=== PATIENT | male | born 1975 | race Hispanic/Latino ===

== ENCOUNTER 2022-03-26 01:08 | Inpatient (IN) | payer SELFPAY ==
[2022-03-26] MEDS ORDERED: SODIUM CHLORIDE 0.9% 1000 ML 1,000 ML IV ONE ×3 (01:45→04:33)
[2022-03-26] MEDS ORDERED: LORazepam 2 MG/ML VIAL IV ONE ×2 (01:49→03:01)
[2022-03-26 02:18] LABS: Hematocrit 53.8 % (35.5-45.6); Hemoglobin 17.3 gm/dl (11.8-15.2); Mean Corpuscular HGB Conc 32 % (32-34); Mean Corpuscular Volume 86 fl (84-94); Platelet Count 400 K/mm3 (140-440); Red Blood Count 6.29 M/mm3 (3.65-5.03)
[2022-03-26 02:38] LABS: Albumin 5.7 g/dL (3.9-5); Calcium 10.9 mg/dL (8.4-10.2)
--- NOTE | 2022-03-26 03:07 | Emergency Department Report ---
ED General Adult HPI - General Stated complaint: DRUGS USE Time Seen by Provider: 03/26/22 01:45 Source: patient, EMS Mode of arrival: Stretcher Limitations: No Limitations - History of Present Illness Initial comments: 46-year-old male presents to the hospital with possible drug ingestion. Patient apparently jumped on an ambulance while at a stoplight requesting transport to the hospital. Possible drug ingestion suspected. Patient does state that he did smoke something. Tachycardic, diaphoretic, with agitation and generalized muscle cramps. I was informed that patient's oral temperature was 98-99 - Related Data Home Medications Medication Instructions Recorded Confirmed Last Taken No Known Home Medications [No 08/17/15 08/17/15 Unknown Reported Home Medications] Allergies Allergy/AdvReac Type Severity Reaction Status Date / Time No Known Allergies Allergy Unverified 08/17/15 16:16 ED Review of Systems ROS: Stated complaint: DRUGS USE Other details as noted in HPI Comment: All other systems reviewed and negative ED Past Medical Hx - Past Medical History Additional medical history: kidney stone x 1 - Social History Smoking Status: Current Every Day Smoker Substance Use Type: Alcohol - Medications Home Medications: Home Medications Medication Instructions Recorded Confirmed Last Taken Type No Known Home Medications [No 08/17/15 08/17/15 Unknown History Reported Home Medications] ED Physical Exam - Other Other exam information: General: Agitated Head: Atraumatic Eyes: normal appearance ENT: Moist mucous membranes Neck: Normal appearance, no midline tenderness Chest: Clear to auscultation bilaterally CV: Tachycardic regular rhythm Abdomen: Soft, normal bowel sounds, nontender, nondistended, no rebound or guarding Back: Normal inspection Extremity: Normal inspection, full range of motion, generalized muscle cramp Neuro: Alert O x 3, no facial asymmetry, speech clear, no gross motor sensory deficit Psych: Agitated Skin: Diaphoretic ED Course Vital Signs 03/26/22 03/26/22 03/26/22 01:28 01:30 02:37 Temperature Pulse Rate 148 H 144 H Respiratory 22 22 Rate Blood Pressure Blood Pressure 144/90 129/75 [Left] O2 Sat by Pulse 95 100 100 Oximetry 03/26/22 03/26/22 03/26/22 04:58 10:04 10:09 Temperature 97.4 F L Pulse Rate 105 H 106 H Respiratory 18 18 Rate Blood Pressure 130/81 Blood Pressure 114/70 [Left] O2 Sat by Pulse 100 99 Oximetry 03/26/22 03/26/22 03/26/22 10:15 10:31 10:50 Temperature Pulse Rate Respiratory Rate Blood Pressure 130/81 130/81 130/81 Blood Pressure [Left] O2 Sat by Pulse 98 98 70 L Oximetry 03/26/22 03/26/22 03/26/22 11:00 11:15 11:32 Temperature Pulse Rate Respiratory Rate Blood Pressure 130/81 130/81 130/81 Blood Pressure [Left] O2 Sat by Pulse 92 93 Oximetry 03/26/22 03/26/22 03/26/22 11:45 12:02 12:15 Temperature Pulse Rate Respiratory Rate Blood Pressure 130/81 130/81 130/81 Blood Pressure [Left] O2 Sat by Pulse 94 79 L 100 Oximetry 03/26/22 03/26/22 03/26/22 12:33 12:47 13:11 Temperature Pulse Rate Respiratory Rate Blood Pressure 130/81 130/81 130/81 Blood Pressure [Left] O2 Sat by Pulse 100 83 L 84 Oximetry 03/26/22 03/26/22 03/26/22 13:17 13:18 13:30 Temperature Pulse Rate Respiratory 20 Rate Blood Pressure 130/81 130/81 Blood Pressure [Left] O2 Sat by Pulse 86 95 85 Oximetry 03/26/22 03/26/22 03/26/22 13:47 14:02 14:15 Temperature Pulse Rate Respiratory Rate Blood Pressure 130/81 130/81 130/81 Blood Pressure [Left] O2 Sat by Pulse 17 L 80 L Oximetry 03/26/22 03/26/22 03/26/22 14:31 14:45 15:00 Temperature Pulse Rate Respiratory Rate Blood Pressure 130/81 130/81 130/81 Blood Pressure [Left] O2 Sat by Pulse 86 85 71 L Oximetry 03/26/22 03/26/22 03/26/22 15:18 15:33 18:17 Temperature Pulse Rate 108 H Respiratory Rate Blood Pressure 130/81 Blood Pressure [Left] O2 Sat by Pulse 72 L 84 Oximetry 03/26/22 03/26/22 03/26/22 18:31 18:45 19:01 Temperature Pulse Rate Respiratory Rate Blood Pressure 132/90 132/90 132/90 Blood Pressure [Left] O2 Sat by Pulse 99 96 98 Oximetry 03/26/22 03/26/22 03/26/22 19:15 19:31 19:45 Temperature Pulse Rate Respiratory Rate Blood Pressure 132/90 122/85 122/85 Blood Pressure [Left] O2 Sat by Pulse 99 96 96 Oximetry 03/26/22 03/26/22 03/26/22 20:01 20:15 20:31 Temperature Pulse Rate Respiratory Rate Blood Pressure 132/90 132/90 132/90 Blood Pressure [Left] O2 Sat by Pulse 100 98 89 Oximetry 03/26/22 03/26/22 03/26/22 20:45 21:01 21:15 Temperature Pulse Rate Respiratory Rate Blood Pressure 132/90 127/80 127/80 Blood Pressure [Left] O2 Sat by Pulse 93 96 96 Oximetry 03/26/22 03/26/22 03/26/22 21:31 21:45 21:51 Temperature Pulse Rate Respiratory Rate Blood Pressure 127/80 127/80 127/80 Blood Pressure [Left] O2 Sat by Pulse 98 100 100 Oximetry 03/26/22 03/26/22 03/26/22 22:00 22:05 22:22 Temperature Pulse Rate Respiratory Rate Blood Pressure 127/80 127/80 127/80 Blood Pressure [Left] O2 Sat by Pulse 100 99 83 L Oximetry 03/26/22 03/26/22 03/26/22 22:51 23:05 23:16 Temperature Pulse Rate Respiratory Rate Blood Pressure 127/80 127/80 Blood Pressure [Left] O2 Sat by Pulse 95 74 L 80 L Oximetry 03/26/22 23:20 Temperature Pulse Rate Respiratory Rate Blood Pressure 127/80 Blood Pressure [Left] O2 Sat by Pulse 78 L Oximetry ED Medical Decision Making - Lab Data Result diagrams: 03/27/22 03:42 03/27/22 03:42 Lab Results 03/26/22 03/26/22 03/26/22 Range/Units 01:54 01:54 01:54 WBC 22.1 H (4.5-11.0) K/mm3 RBC 6.29 H (3.65-5.03) M/mm3 Hgb 17.3 H (11.8-15.2) gm/dl Hct 53.8 H (35.5-45.6) % MCV 86 (84-94) fl MCH 28 (28-32) pg MCHC 32 (32-34) % RDW 15.0 (13.2-15.2) % Plt Count 400 (140-440) K/mm3 Add Manual Diff Complete Total Counted 100 Seg Neuts % (Manual) 91.0 H (40.0-70.0) % Band Neutrophils % 3.0 % Lymphocytes % (Manual) 3.0 L (13.4-35.0) % Reactive Lymphs % (Man) 0 % Monocytes % (Manual) 3.0 (0.0-7.3) % Eosinophils % (Manual) 0 (0.0-4.3) % Basophils % (Manual) 0 (0.0-1.8) % Metamyelocytes % 0 % Myelocytes % 0 % Promyelocytes % 0 % Blast Cells % 0 % Nucleated RBC % Not Reportable Seg Neutrophils # Man 20.1 H (1.8-7.7) K/mm3 Band Neutrophils # 0.7 K/mm3 Lymphocytes # (Manual) 0.7 L (1.2-5.4) K/mm3 Abs React Lymphs (Man) 0.0 K/mm3 Monocytes # (Manual) 0.7 (0.0-0.8) K/mm3 Eosinophils # (Manual) 0.0 (0.0-0.4) K/mm3 Basophils # (Manual) 0.0 (0.0-0.1) K/mm3 Metamyelocytes # 0.0 K/mm3 Myelocytes # 0.0 K/mm3 Promyelocytes # 0.0 K/mm3 Blast Cells # 0.0 K/mm3 WBC Morphology Not Reportable Hypersegmented Neuts Not Reportable Hyposegmented Neuts Not Reportable Hypogranular Neuts Not Reportable Smudge Cells Not Reportable Toxic Granulation Not Reportable Toxic Vacuolation Not Reportable Dohle Bodies Not Reportable Pelger-Huet Anomaly Not Reportable Clara Rods Not Reportable Platelet Estimate Consistent w auto Clumped Platelets Not Reportable Plt Clumps, EDTA Not Reportable Large Platelets Not Reportable Giant Platelets Not Reportable Platelet Satelliting Not Reportable Plt Morphology Comment Not Reportable RBC Morphology Normal Dimorphic RBCs Not Reportable Polychromasia Not Reportable Hypochromasia Not Reportable Poikilocytosis Not Reportable Anisocytosis Not Reportable Microcytosis Not Reportable Macrocytosis Not Reportable Spherocytes Not Reportable Pappenheimer Bodies Not Reportable Sickle Cells Not Reportable Target Cells Not Reportable Tear Drop Cells Not Reportable Ovalocytes Not Reportable Helmet Cells Not Reportable Gilmore-Nageezi Bodies Not Reportable Clare Rings Not Reportable Stephan Cells Not Reportable Bite Cells Not Reportable Crenated Cell Not Reportable Elliptocytes Not Reportable Acanthocytes (Spur) Not Reportable Rouleaux Not Reportable Hemoglobin C Crystals Not Reportable Schistocytes Not Reportable Malaria parasites Not Reportable Chacorta Bodies Not Reportable Hem Pathologist Commnt No Sodium (137-145) mmol/L Potassium (3.6-5.0) mmol/L Chloride (98-107) mmol/L Carbon Dioxide (22-30) mmol/L Anion Gap mmol/L BUN (9-20) mg/dL Creatinine (0.8-1.3) mg/dL Estimated GFR ml/min BUN/Creatinine Ratio % Glucose (75-100) mg/dL Lactic Acid (0.7-2.0) mmol/L Calcium (8.4-10.2) mg/dL Magnesium (1.7-2.3) mg/dL Total Bilirubin (0.1-1.2) mg/dL AST (5-40) units/L ALT (7-56) units/L Alkaline Phosphatase (35-129) units/L Total Creatine Kinase (55-170) units/L Total Protein (6.3-8.2) g/dL Albumin (3.9-5) g/dL Albumin/Globulin Ratio % Salicylates < 0.3 L (2.8-20.0) mg/dL Acetaminophen 5.0 L (10.0-30.0) ug/mL Plasma/Serum Alcohol (0-0.07) % 03/26/22 03/26/22 03/26/22 Range/Units 01:54 01:54 01:58 WBC (4.5-11.0) K/mm3 RBC (3.65-5.03) M/mm3 Hgb (11.8-15.2) gm/dl Hct (35.5-45.6) % MCV (84-94) fl MCH (28-32) pg MCHC (32-34) % RDW (13.2-15.2) % Plt Count (140-440) K/mm3 Add Manual Diff Total Counted Seg Neuts % (Manual) (40.0-70.0) % Band Neutrophils % % Lymphocytes % (Manual) (13.4-35.0) % Reactive Lymphs % (Man) % Monocytes % (Manual) (0.0-7.3) % Eosinophils % (Manual) (0.0-4.3) % Basophils % (Manual) (0.0-1.8) % Metamyelocytes % % Myelocytes % % Promyelocytes % % Blast Cells % % Nucleated RBC % Seg Neutrophils # Man (1.8-7.7) K/mm3 Band Neutrophils # K/mm3 Lymphocytes # (Manual) (1.2-5.4) K/mm3 Abs React Lymphs (Man) K/mm3 Monocytes # (Manual) (0.0-0.8) K/mm3 Eosinophils # (Manual) (0.0-0.4) K/mm3 Basophils # (Manual) (0.0-0.1) K/mm3 Metamyelocytes # K/mm3 Myelocytes # K/mm3 Promyelocytes # K/mm3 Blast Cells # K/mm3 WBC Morphology Hypersegmented Neuts Hyposegmented Neuts Hypogranular Neuts Smudge Cells Toxic Granulation Toxic Vacuolation Dohle Bodies Pelger-Huet Anomaly Clara Rods Platelet Estimate Clumped Platelets Plt Clumps, EDTA Large Platelets Giant Platelets Platelet Satelliting Plt Morphology Comment RBC Morphology Dimorphic RBCs Polychromasia Hypochromasia Poikilocytosis Anisocytosis Microcytosis Macrocytosis Spherocytes Pappenheimer Bodies Sickle Cells Target Cells Tear Drop Cells Ovalocytes Helmet Cells Gilmore-Nageezi Bodies Clare Rings Stephan Cells Bite Cells Crenated Cell Elliptocytes Acanthocytes (Spur) Rouleaux Hemoglobin C Crystals Schistocytes Malaria parasites Chacorta Bodies Hem Pathologist Commnt Sodium 146 H (137-145) mmol/L Potassium 4.2 (3.6-5.0) mmol/L Chloride 100.1 (98-107) mmol/L Carbon Dioxide 24 (22-30) mmol/L Anion Gap 26 mmol/L BUN 29 H (9-20) mg/dL Creatinine 2.2 H (0.8-1.3) mg/dL Estimated GFR 32 ml/min BUN/Creatinine Ratio 13 % Glucose 111 H (75-100) mg/dL Lactic Acid (0.7-2.0) mmol/L Calcium 10.9 H (8.4-10.2) mg/dL Magnesium (1.7-2.3) mg/dL Total Bilirubin 1.80 H (0.1-1.2) mg/dL AST 43 H (5-40) units/L ALT 41 (7-56) units/L Alkaline Phosphatase 94 (35-129) units/L Total Creatine Kinase 737 H (55-170) units/L Total Protein 8.9 H (6.3-8.2) g/dL Albumin 5.7 H (3.9-5) g/dL Albumin/Globulin Ratio 1.8 % Salicylates (2.8-20.0) mg/dL Acetaminophen (10.0-30.0) ug/mL Plasma/Serum Alcohol < 0.01 (0-0.07) % 03/26/22 03/26/22 Range/Units 01:58 03:23 WBC (4.5-11.0) K/mm3 RBC (3.65-5.03) M/mm3 Hgb (11.8-15.2) gm/dl Hct (35.5-45.6) % MCV (84-94) fl MCH (28-32) pg MCHC (32-34) % RDW (13.2-15.2) % Plt Count (140-440) K/mm3 Add Manual Diff Total Counted Seg Neuts % (Manual) (40.0-70.0) % Band Neutrophils % % Lymphocytes % (Manual) (13.4-35.0) % Reactive Lymphs % (Man) % Monocytes % (Manual) (0.0-7.3) % Eosinophils % (Manual) (0.0-4.3) % Basophils % (Manual) (0.0-1.8) % Metamyelocytes % % Myelocytes % % Promyelocytes % % Blast Cells % % Nucleated RBC % Seg Neutrophils # Man (1.8-7.7) K/mm3 Band Neutrophils # K/mm3 Lymphocytes # (Manual) (1.2-5.4) K/mm3 Abs React Lymphs (Man) K/mm3 Monocytes # (Manual) (0.0-0.8) K/mm3 Eosinophils # (Manual) (0.0-0.4) K/mm3 Basophils # (Manual) (0.0-0.1) K/mm3 Metamyelocytes # K/mm3 Myelocytes # K/mm3 Promyelocytes # K/mm3 Blast Cells # K/mm3 WBC Morphology Hypersegmented Neuts Hyposegmented Neuts Hypogranular Neuts Smudge Cells Toxic Granulation Toxic Vacuolation Dohle Bodies Pelger-Huet Anomaly Clara Rods Platelet Estimate Clumped Platelets Plt Clumps, EDTA Large Platelets Giant Platelets Platelet Satelliting Plt Morphology Comment RBC Morphology Dimorphic RBCs Polychromasia Hypochromasia Poikilocytosis Anisocytosis Microcytosis Macrocytosis Spherocytes Pappenheimer Bodies Sickle Cells Target Cells Tear Drop Cells Ovalocytes Helmet Cells Gilmore-Nageezi Bodies Clare Rings Letha Cells Bite Cells Crenated Cell Elliptocytes Acanthocytes (Spur) Rouleaux Hemoglobin C Crystals Schistocytes Malaria parasites Chacorta Bodies Hem Pathologist Commnt Sodium (137-145) mmol/L Potassium (3.6-5.0) mmol/L Chloride (98-107) mmol/L Carbon Dioxide (22-30) mmol/L Anion Gap mmol/L BUN (9-20) mg/dL Creatinine (0.8-1.3) mg/dL Estimated GFR ml/min BUN/Creatinine Ratio % Glucose (75-100) mg/dL Lactic Acid 1.60 (0.7-2.0) mmol/L Calcium (8.4-10.2) mg/dL Magnesium 2.60 H (1.7-2.3) mg/dL Total Bilirubin (0.1-1.2) mg/dL AST (5-40) units/L ALT (7-56) units/L Alkaline Phosphatase (35-129) units/L Total Creatine Kinase (55-170) units/L Total Protein (6.3-8.2) g/dL Albumin (3.9-5) g/dL Albumin/Globulin Ratio % Salicylates (2.8-20.0) mg/dL Acetaminophen (10.0-30.0) ug/mL Plasma/Serum Alcohol (0-0.07) % - EKG Data -: EKG Interpreted by [facility] EKG shows normal: sinus rhythm, ST-T waves (no stemi) Rate: normal (109) - Radiology Data Radiology results: report reviewed CHEST 1 VIEW INDICATION / CLINICAL INFORMATION: excited delerium, possible drug ingestion. COMPARISON: None available. FINDINGS: SUPPORT DEVICES: None. HEART / MEDIASTINUM: No significant abnormality. LUNGS / PLEURA: No significant pulmonary abnormality. BONES: No significant osseous abnormality. ADDITIONAL FINDINGS: No significant additional findings. IMPRESSION: 1. No active cardiopulmonary disease. - Medical Decision Making 46-year-old male presents to the hospital with acute agitation, diaphoresis, tachycardia. Patient does admit to unknown drug use prior to arrival. Symptoms improving with IV fluids and Ativan. Labs reveal elevated WBC count and renal insufficiency. Patient meets criteria for SIRS. No source of infection identified at this time. Lactic acid normal. Patient will be admitted to the hospital service for further treatment and monitoring. - Differential Diagnosis Excited delirium, drug ingestion, sepsis, arrhythmia Critical Care Time: No Critical care attestation.: If time is entered above; I have spent that time in minutes in the direct care of this critically ill patient, excluding procedure time. ED Disposition Clinical Impression: Acute drug intoxication, Agitation, SIRS (systemic inflammatory response syndrome), Renal insufficiency Disposition: ADMITTED INPATIENT Is pt being admited?: Yes Condition: Stable Time of Disposition: 04:50 (DR Hill)
[2022-03-26 03:14] LABS: Band Neutrophils # (Manual) 0.7 K/mm3; Basophils % (Manual) 0 % (0.0-1.8); Eosinophils % (Manual) 0 % (0.0-4.3); Platelet Estimate Consistent w Auto; RBC Morphology Normal; Total Cells Counted 100
[2022-03-26] MEDS ORDERED: ALBUTEROL 2.5 MG/3 ML NEBU IH PRN (05:00)
[2022-03-26] MEDS ORDERED: ONDANSETRON 4 MG/2 ML INJ IV PRN (05:00)
[2022-03-26] MEDS ORDERED: MORPHINE 4 MG/1 ML INJ IV PRN (05:00)
[2022-03-26] MEDS ORDERED: D5W/0.45% NACL 1,000 ML IV SCH (05:00)
[2022-03-26] MEDS ORDERED: MORPHINE 2 MG/1 ML INJ IV PRN (05:00)
[2022-03-26] MEDS ORDERED: ACETAMINOPHEN 325 MG TAB PO PRN (05:00)
--- NOTE | 2022-03-26 05:07 | History and Physical Report ---
History of Present Illness Date of examination: 03/26/22 Date of admission: 03/26/22 Chief complaint: Drug intoxication History of present illness: 46-year-old male with history of drug abuse and kidney stone was brought to the emergency room because of drug intoxication. Patient apparently jumped on an ambulance while at a stoplight requesting transport to the hospital. Possible drug ingestion suspected. Patient does state that he did smoke something. Tachycardic, diaphoretic, with agitation and generalized muscle cramps. patient's oral temperature was 98-99 In the emergency room patient is found to have acute drug intoxication. Patient WBC is 22.1, BUN 29 and creatinine 2.2, sodium 146, lactic acid 1.60, alcohol level 0.01 Past History Past Medical History: other (Drug abuse, kidney stone) Past Surgical History: No surgical history Social history: smoking, alcohol abuse Family history: no significant family history Medications and Allergies Allergies Allergy/AdvReac Type Severity Reaction Status Date / Time No Known Allergies Allergy Unverified 08/17/15 16:16 Home Medications Medication Instructions Recorded Confirmed Last Taken Type No Known Home Medications [No 08/17/15 08/17/15 Unknown History Reported Home Medications] Active Meds: Active Medications Acetaminophen (Acetaminophen 325 Mg Tab) 650 mg PO Q4H PRN PRN Reason: Pain MILD(1-3)/Fever >100.5/CASTANO Albuterol (Albuterol 2.5 Mg/3 Ml Nebu) 2.5 mg IH Q3HRT PRN PRN Reason: Shortness Of Breath Albuterol/Ipratropium (Ipratropium/Albuterol Sulfate 3 Ml Ampul.Neb) 1 ampul IH Q6HRT ELIZA Famotidine (Famotidine 20 Mg/2 Ml Inj) 20 mg IV BID ELIZA Heparin Sodium (Porcine) (Heparin 5,000 Unit/1 Ml Vial) 5,000 unit SUB-Q Q12HR ELIZA Sodium Chloride (Nacl 0.9% 1000 Ml) 1,000 mls @ 999 mls/hr IV BOLUS ONE Stop: 03/26/22 05:33 Dextrose/Sodium Chloride (D5/0.45ns) 1,000 mls @ 125 mls/hr IV DIRECT ELIZA Morphine Sulfate (Morphine 2 Mg/1 Ml Inj) 2 mg IV Q4H PRN PRN Reason: Pain, Moderate (4-6) Morphine Sulfate (Morphine 4 Mg/1 Ml Inj) 4 mg IV Q4H PRN PRN Reason: Pain , Severe (7-10) Ondansetron HCl (Ondansetron 4 Mg/2 Ml Inj) 4 mg IV Q8H PRN PRN Reason: Nausea And Vomiting Sodium Chloride (Sodium Chloride 0.9% 10 Ml Flush Syringe) 10 ml IV BID ELIZA Sodium Chloride (Sodium Chloride 0.9% 10 Ml Flush Syringe) 10 ml IV PRN PRN PRN Reason: LINE FLUSH Review of Systems All systems: negative Constitutional: fatigue, malaise, lethargy, other (Altered mental status) Exam - Constitutional Vitals: Temp Pulse Resp BP Pulse Ox 97.4 F L 105 H 18 114/70 100 03/26/22 04:58 03/26/22 04:58 03/26/22 04:58 03/26/22 04:58 03/26/22 04:58 General appearance: Present: no acute distress, well-nourished - EENT Eyes: Present: PERRL ENT: hearing intact, clear oral mucosa - Neck Neck: Present: supple, normal ROM - Respiratory Respiratory effort: normal Respiratory: bilateral: CTA - Cardiovascular Heart Sounds: Present: S1 & S2. Absent: rub, click - Extremities Extremities: pulses symmetrical, No edema Peripheral Pulses: within normal limits - Abdominal General gastrointestinal: Present: soft, non-tender, non-distended, normal bowel sounds Male genitourinary: Present: normal - Integumentary Integumentary: Present: clear, warm, dry - Musculoskeletal Musculoskeletal: gait normal, strength equal bilaterally - Neurologic Neurologic: CNII-XII intact, moves all extremities Results - Labs CBC & Chem 7: 03/26/22 01:54 03/26/22 01:58 Labs: Laboratory Last Values WBC 22.1 K/mm3 (4.5-11.0) H 03/26/22 01:54 RBC 6.29 M/mm3 (3.65-5.03) H 03/26/22 01:54 Hgb 17.3 gm/dl (11.8-15.2) H 03/26/22 01:54 Hct 53.8 % (35.5-45.6) H 03/26/22 01:54 MCV 86 fl (84-94) 03/26/22 01:54 MCH 28 pg (28-32) 03/26/22 01:54 MCHC 32 % (32-34) 03/26/22 01:54 RDW 15.0 % (13.2-15.2) 03/26/22 01:54 Plt Count 400 K/mm3 (140-440) 03/26/22 01:54 Add Manual Diff Complete 03/26/22 01:54 Total Counted 100 03/26/22 01:54 Seg Neuts % (Manual) 91.0 % (40.0-70.0) H 03/26/22 01:54 Band Neutrophils % 3.0 % 03/26/22 01:54 Lymphocytes % (Manual) 3.0 % (13.4-35.0) L 03/26/22 01:54 Reactive Lymphs % (Man) 0 % 03/26/22 01:54 Monocytes % (Manual) 3.0 % (0.0-7.3) 03/26/22 01:54 Eosinophils % (Manual) 0 % (0.0-4.3) 03/26/22 01:54 Basophils % (Manual) 0 % (0.0-1.8) 03/26/22 01:54 Metamyelocytes % 0 % 03/26/22 01:54 Myelocytes % 0 % 03/26/22 01:54 Promyelocytes % 0 % 03/26/22 01:54 Blast Cells % 0 % 03/26/22 01:54 Nucleated RBC % Not Reportable 03/26/22 01:54 Seg Neutrophils # Man 20.1 K/mm3 (1.8-7.7) H 03/26/22 01:54 Band Neutrophils # 0.7 K/mm3 03/26/22 01:54 Lymphocytes # (Manual) 0.7 K/mm3 (1.2-5.4) L 03/26/22 01:54 Abs React Lymphs (Man) 0.0 K/mm3 03/26/22 01:54 Monocytes # (Manual) 0.7 K/mm3 (0.0-0.8) 03/26/22 01:54 Eosinophils # (Manual) 0.0 K/mm3 (0.0-0.4) 03/26/22 01:54 Basophils # (Manual) 0.0 K/mm3 (0.0-0.1) 03/26/22 01:54 Metamyelocytes # 0.0 K/mm3 03/26/22 01:54 Myelocytes # 0.0 K/mm3 03/26/22 01:54 Promyelocytes # 0.0 K/mm3 03/26/22 01:54 Blast Cells # 0.0 K/mm3 03/26/22 01:54 WBC Morphology Not Reportable 03/26/22 01:54 Hypersegmented Neuts Not Reportable 03/26/22 01:54 Hyposegmented Neuts Not Reportable 03/26/22 01:54 Hypogranular Neuts Not Reportable 03/26/22 01:54 Smudge Cells Not Reportable 03/26/22 01:54 Toxic Granulation Not Reportable 03/26/22 01:54 Toxic Vacuolation Not Reportable 03/26/22 01:54 Dohle Bodies Not Reportable 03/26/22 01:54 Pelger-Huet Anomaly Not Reportable 03/26/22 01:54 Clara Rods Not Reportable 03/26/22 01:54 Platelet Estimate Consistent w auto 03/26/22 01:54 Clumped Platelets Not Reportable 03/26/22 01:54 Plt Clumps, EDTA Not Reportable 03/26/22 01:54 Large Platelets Not Reportable 03/26/22 01:54 Giant Platelets Not Reportable 03/26/22 01:54 Platelet Satelliting Not Reportable 03/26/22 01:54 Plt Morphology Comment Not Reportable 03/26/22 01:54 RBC Morphology Normal 03/26/22 01:54 Dimorphic RBCs Not Reportable 03/26/22 01:54 Polychromasia Not Reportable 03/26/22 01:54 Hypochromasia Not Reportable 03/26/22 01:54 Poikilocytosis Not Reportable 03/26/22 01:54 Anisocytosis Not Reportable 03/26/22 01:54 Microcytosis Not Reportable 03/26/22 01:54 Macrocytosis Not Reportable 03/26/22 01:54 Spherocytes Not Reportable 03/26/22 01:54 Pappenheimer Bodies Not Reportable 03/26/22 01:54 Sickle Cells Not Reportable 03/26/22 01:54 Target Cells Not Reportable 03/26/22 01:54 Tear Drop Cells Not Reportable 03/26/22 01:54 Ovalocytes Not Reportable 03/26/22 01:54 Helmet Cells Not Reportable 03/26/22 01:54 Gil[place]-Harrell Bodies Not Reportable 03/26/22 01:54 [place] Rings Not Reportable 03/26/22 01:54 [place] Cells Not Reportable 03/26/22 01:54 Bite Cells Not Reportable 03/26/22 01:54 Crenated Cell Not Reportable 03/26/22 01:54 Elliptocytes Not Reportable 03/26/22 01:54 Acanthocytes (Spur) Not Reportable 03/26/22 01:54 Rouleaux Not Reportable 03/26/22 01:54 Hemoglobin C Crystals Not Reportable 03/26/22 01:54 Schistocytes Not Reportable 03/26/22 01:54 Malaria parasites Not Reportable 03/26/22 01:54 Chacorta Bodies Not Reportable 03/26/22 01:54 Hem Pathologist Commnt No 03/26/22 01:54 Sodium 146 mmol/L (137-145) H 03/26/22 01:58 Potassium 4.2 mmol/L (3.6-5.0) 03/26/22 01:58 Chloride 100.1 mmol/L (98-107) 03/26/22 01:58 Carbon Dioxide 24 mmol/L (22-30) 03/26/22 01:58 Anion Gap 26 mmol/L 03/26/22 01:58 BUN 29 mg/dL (9-20) H 03/26/22 01:58 Creatinine 2.2 mg/dL (0.8-1.3) H 03/26/22 01:58 Estimated GFR 32 ml/min 03/26/22 01:58 BUN/Creatinine Ratio 13 % 03/26/22 01:58 Glucose 111 mg/dL (75-100) H 03/26/22 01:58 Lactic Acid 1.60 mmol/L (0.7-2.0) 03/26/22 03:23 Calcium 10.9 mg/dL (8.4-10.2) H 03/26/22 01:58 Magnesium 2.60 mg/dL (1.7-2.3) H 03/26/22 01:58 Total Bilirubin 1.80 mg/dL (0.1-1.2) H 03/26/22 01:58 AST 43 units/L (5-40) H 03/26/22 01:58 ALT 41 units/L (7-56) 03/26/22 01:58 Alkaline Phosphatase 94 units/L (35-129) 03/26/22 01:58 Total Creatine Kinase 737 units/L (55-170) H 03/26/22 01:54 Total Protein 8.9 g/dL (6.3-8.2) H 03/26/22 01:58 Albumin 5.7 g/dL (3.9-5) H 03/26/22 01:58 Albumin/Globulin Ratio 1.8 % 03/26/22 01:58 Salicylates < 0.3 mg/dL (2.8-20.0) L 03/26/22 01:54 Acetaminophen 5.0 ug/mL (10.0-30.0) L 03/26/22 01:54 Plasma/Serum Alcohol < 0.01 % (0-0.07) 03/26/22 01:54 - Imaging and Cardiology Chest x-ray: report reviewed Assessment and Plan VTE prophylaxis?: Chemical Plan of care discussed with patient/family: Yes - Patient Problems (1) Acute drug intoxication Current Visit: Yes Status: Acute Plan to address problem: Admit the patient to the medical telemetry. NPO. D5 half-normal saline at the rate of 125 cc/h. Oxygen per nasal cannula 3 L/min DuoNeb and nebulizer every 4 hours. We will consult psych for evaluation. Recheck CBC BMP in the morning (2) MALU (acute kidney injury) Current Visit: Yes Status: Acute Plan to address problem: Avoid nephrotoxic drug. Renally dose medication. D5 half-normal saline at the rate of 125 cc/h. Recheck BMP in the morning (3) SIRS (systemic inflammatory response syndrome) Current Visit: Yes Status: Acute Plan to address problem: Rocephin 2 g IV daily. We will do the blood culture urine culture. Recheck CBC in the morning (4) Hypernatremia Current Visit: Yes Status: Acute Plan to address problem: D5 half-normal saline at the rate of 125 cc/h. We will recheck the BMP in the morning (5) Agitation Current Visit: Yes Status: Acute Plan to address problem: Patient got Ativan as needed. We will monitor the patient closely (6) Tobacco abuse Current Visit: Yes Status: Acute Plan to address problem: We counseled regarding quitting smoking. We will put the patient on nicotine patch 21 mg to the skin daily (7) DVT prophylaxis Current Visit: Yes Status: Acute Plan to address problem: Heparin 5000 units subcu every 12 hours for DVT prophylaxis. Pepcid 20 mg IV every 12 hours for GI prophylaxis. Patient is a full code
--- NOTE | 2022-03-26 05:17 | XRay Report ---
CHEST 1 VIEW INDICATION / CLINICAL INFORMATION: excited delerium, possible drug ingestion. COMPARISON: None available. FINDINGS: SUPPORT DEVICES: None. HEART / MEDIASTINUM: No significant abnormality. LUNGS / PLEURA: No significant pulmonary abnormality. BONES: No significant osseous abnormality. ADDITIONAL FINDINGS: No significant additional findings. IMPRESSION: 1. No active cardiopulmonary disease. Signer Name: Tone Elias II, MD Signed: 03/26/2022 5:12 AM Workstation Name: [id number]
[2022-03-26] MEDS ORDERED: NICOTINE 21 MG/24 HR PATCH TD ONE ×2 (05:41→11:00)
[2022-03-26] MEDS: cefTRIAXone/NS 2 GM/100 ML 2 GM/100 ML BAG IV SCH (06:45)
--- NOTE | 2022-03-26 09:07 | Electrocardiograph Report ---
[facility] Test Date: 2022-03-26 Test Time: 04:16:08 Pat Name: COLETTE GREWAL Department: Room: [facility] Gender: M Slide Developer: FELICITAS : 1975 Requested By: LIZZY SANTIAGO Order Number: [id number] Reading MD: Vitaliy Matamoros Measurements Intervals [place] Rate: 109 P: 38 NH: 148 QRS: 31 QRSD: 88 T: 48 QT: 371 QTc: 499 Interpretive Statements Sinus tachycardia No previous ECG available for comparison Electronically Signed On 03-26-2022 9:07:22 EDT by Vitaliy Matamoros
[2022-03-26] MEDS: HEPARIN 5,000 UNIT/1 ML VIAL SUB-Q SCH ×2 (10:55→22:10)
--- NOTE | 2022-03-26 12:58 | Consultation ---
History of Present Illness - Reason for Consult Consult date: 03/26/22 Reason for consult: Mental health evaluation - Chief Complaint Chief complaint: Drug intoxication - History of Present Psychiatric Illness HPI: 46-year-old male presents to the hospital with possible drug ingestion. Patient apparently jumped on an ambulance while at a stoplight requesting transport to the hospital. Possible drug ingestion suspected. Patient does state that he did smoke something. Tachycardic, diaphoretic, with agitation and generalized muscle cramps. I was informed that patient's oral temperature was 98-99. The patient is a 46 year old male with history of substance abuse. The patient was seen today. The patient is anxious , alert and oriented x2. The states " I had to get away, too much pressure in my house." The patient reports ingesting ICE and alcohol " big bottle of Smirnoff" yesterday. When asked why he uses drugs, he states " my job, everybody use drugs, that how I started." He reports previous psychiatric inpatient admission for detoxification and has also been to a Rehab. The patient denies any current suicidal homicidal ideation and denies hallucinations. PAST PSYCHIATRIC HISTORY: Diagnoses: ADHD, Substance use disorder Suicide attempts or Self-harm behavior: Denies Prior psychiatric hospitalizations: Yes Substance Abuse history: Alcohol and ICE Previous psychiatric medications tried: Unable to recall Outpatient treatment: None report PAST MEDICAL HISTORY: Family Psychiatric History: None reported or documented SOCIAL HISTORY Marital Status: single Living Arrangements: with girl friend Employment Status:employed Access to guns/weapons: Denies Education: 9th grade History of Abuse: None reported Legal History: None reported REVIEW OF SYSTEMS Constitutional: Negative for weight loss ENT: Negative for stridor Respiratory: Negative for cough or hemoptysis All other systems reviewed and are negative MENTAL STATUS EXAMINATION General Appearance and Behavior: Age appropriate, good hygiene, wearing appropriate clothes, good eye contact, cooperative Cooperation: Participating/engaged Psychomotor Behavior: unremarkable and within normal limits Mood: anxious Affect and affective range: congruent with mood Thought Process: circumstantial Thought Content: Reality oriented Speech: Normal volume, Regular rate and rhythm Suicidal Ideation: Denies Homicidal Ideation: Denies Hallucinations: Denies Impulse Control: Unimpaired Insight and Judgment: Limited insight and judgment Memory: Normal Attention: Normal Orientation: Alert, oriented Assessment Substance use disorder Treatment Plan Sitter: Defer to primary Medical: Per primary Disposition:Do not Recommend acute inpatient treatment. Cafeteria Team Leader will provide with psychiatric outpatient resources. Will follow Case discussed with Dr. Raymond Medications and Allergies Allergies Allergy/AdvReac Type Severity Reaction Status Date / Time No Known Allergies Allergy Unverified 08/17/15 16:16 Home Medications Medication Instructions Recorded Confirmed Last Taken Type No Known Home Medications [No 08/17/15 08/17/15 Unknown History Reported Home Medications] Active Meds: Active Medications Acetaminophen (Acetaminophen 325 Mg Tab) 650 mg PO Q4H PRN PRN Reason: Pain MILD(1-3)/Fever >100.5/CASTANO Albuterol (Albuterol 2.5 Mg/3 Ml Nebu) 2.5 mg IH Q3HRT PRN PRN Reason: Shortness Of Breath Albuterol/Ipratropium (Ipratropium/Albuterol Sulfate 3 Ml Ampul.Neb) 1 ampul IH Q6HRT ELIZA Famotidine (Famotidine 20 Mg/2 Ml Inj) 20 mg IV QAM ELIZA Heparin Sodium (Porcine) (Heparin 5,000 Unit/1 Ml Vial) 5,000 unit SUB-Q Q12HR ELIZA Dextrose/Sodium Chloride (D5/0.45ns) 1,000 mls @ 125 mls/hr IV DIRECT ELIZA Ceftriaxone Sodium (Rocephin/Ns 2 Gm/100 Ml) 2 gm in 100 mls @ 200 mls/hr IV Q24H ELIZA; Protocol Last Admin: 03/26/22 06:45 Dose: 200 mls/hr Morphine Sulfate (Morphine 2 Mg/1 Ml Inj) 2 mg IV Q4H PRN PRN Reason: Pain, Moderate (4-6) Morphine Sulfate (Morphine 4 Mg/1 Ml Inj) 4 mg IV Q4H PRN PRN Reason: Pain , Severe (7-10) Ondansetron HCl (Ondansetron 4 Mg/2 Ml Inj) 4 mg IV Q8H PRN PRN Reason: Nausea And Vomiting Sodium Chloride (Sodium Chloride 0.9% 10 Ml Flush Syringe) 10 ml IV BID ELIZA Sodium Chloride (Sodium Chloride 0.9% 10 Ml Flush Syringe) 10 ml IV PRN PRN PRN Reason: LINE FLUSH Mental Status Exam - Vital signs Last Vital Signs Temp 97.4 F L 03/26/22 04:58 Pulse 106 H 03/26/22 10:09 Resp 18 03/26/22 10:09 BP 130/81 03/26/22 10:04 Pulse Ox 99 03/26/22 10:09 Results Result Diagrams: 03/26/22 01:54 03/26/22 01:58 Abnormal lab results 03/26/22 03/26/22 03/26/22 Range/Units 01:54 01:54 01:54 WBC 22.1 H (4.5-11.0) K/mm3 RBC 6.29 H (3.65-5.03) M/mm3 Hgb 17.3 H (11.8-15.2) gm/dl Hct 53.8 H (35.5-45.6) % Seg Neuts % (Manual) 91.0 H (40.0-70.0) % Lymphocytes % (Manual) 3.0 L (13.4-35.0) % Seg Neutrophils # Man 20.1 H (1.8-7.7) K/mm3 Lymphocytes # (Manual) 0.7 L (1.2-5.4) K/mm3 Sodium (137-145) mmol/L BUN (9-20) mg/dL Creatinine (0.8-1.3) mg/dL Glucose (75-100) mg/dL Calcium (8.4-10.2) mg/dL Magnesium (1.7-2.3) mg/dL Total Bilirubin (0.1-1.2) mg/dL AST (5-40) units/L Total Creatine Kinase (55-170) units/L Total Protein (6.3-8.2) g/dL Albumin (3.9-5) g/dL Salicylates < 0.3 L (2.8-20.0) mg/dL Acetaminophen 5.0 L (10.0-30.0) ug/mL 03/26/22 03/26/22 03/26/22 Range/Units 01:54 01:58 01:58 WBC (4.5-11.0) K/mm3 RBC (3.65-5.03) M/mm3 Hgb (11.8-15.2) gm/dl Hct (35.5-45.6) % Seg Neuts % (Manual) (40.0-70.0) % Lymphocytes % (Manual) (13.4-35.0) % Seg Neutrophils # Man (1.8-7.7) K/mm3 Lymphocytes # (Manual) (1.2-5.4) K/mm3 Sodium 146 H (137-145) mmol/L BUN 29 H (9-20) mg/dL Creatinine 2.2 H (0.8-1.3) mg/dL Glucose 111 H (75-100) mg/dL Calcium 10.9 H (8.4-10.2) mg/dL Magnesium 2.60 H (1.7-2.3) mg/dL Total Bilirubin 1.80 H (0.1-1.2) mg/dL AST 43 H (5-40) units/L Total Creatine Kinase 737 H (55-170) units/L Total Protein 8.9 H (6.3-8.2) g/dL Albumin 5.7 H (3.9-5) g/dL Salicylates (2.8-20.0) mg/dL Acetaminophen (10.0-30.0) ug/mL All other labs normal.
[2022-03-26] MEDS: FAMOTIDINE 20 MG/2 ML INJ IV SCH (13:19)
--- NOTE | 2022-03-26 16:46 | Event Note ---
Date: 03/26/22 The patient was evaluated this morning, and he was found to be hemodynamically stable. #Acute toxic metabolic encephalopathy #Acute drug intoxication Current drug administration is unknown. Pending urine drug screen. Psychiatry consulted on admission in the setting of multiple drug intoxication. Increased clinical suspicion for underlying neurological deficit/abnormality with superimposed toxic drug administration. Will need to get additional background information. Drug intoxication should improve with time. Continue to monitor #MALU Creatinine 2.2 (baseline unknown) Possibly secondary to illicit drug administration in the setting of dehydration. Continue IV fluid resuscitation. Renally dose meds and avoid nephrotoxic drugs. Consider nephrology consult if creatinine continues to worsen. #Systemic inflammatory response syndrome #Leukocytosis Likely secondary to patient being agitated/erratic from substance administration. This morning patient's heart rate 105, WBC 22.1. Unremarkable lactic acidosis. Pending blood culture and urine culture. Continue Rocephin 2 g daily. #Hyponatremia Sodium 146 Likely secondary to dehydration. Patient encouraged to increase p.o. intake. Pending repeat BMP. #Polysubstance dependence -Patient engages in the following substances: Cocaine, marijuana, synthetic methamphetamines -Counseled patient about the importance of cessation of substance abuse. Offered resources to help with quitting. Patient expresses understanding. -Time: +15 mins #Tobacco dependence #Tobacco/Smoking cessation counseling - Counseled patient about the importance of smoking cessation and the possible sequelae as a result of continued tobacco consumption. The patient expresses understanding. -Time: +15 mins #Coordination of CARE time: 30 minutes. Total visit time equals 30 or more minutes with greater than 50% spent [id number] on coordination of care and counseling. #Advanced care planning -Disease education conducted, care plan discussed, diagnoses discussed, prognosis discussed, and patient acknowledges understanding with care plan -Time: +30 min
[2022-03-26 20:16] LABS: Hematocrit 42.2 % (35.5-45.6); Hemoglobin 14.1 gm/dl (11.8-15.2); Mean Corpuscular HGB Conc 34 % (32-34); Mean Corpuscular Volume 85 fl (84-94); Platelet Count 229 K/mm3 (140-440); Red Blood Count 4.99 M/mm3 (3.65-5.03); Red Cell Distribution Width 14.9 % (13.2-15.2)
[2022-03-26 20:32] LABS: BUN/Creatinine Ratio 30; Blood Urea Nitrogen 27 mg/dL (9-20); Calcium 8.7 mg/dL (8.4-10.2); Hemolysis Index 3
[2022-03-26] MEDS: IPRATROPIUM/ALBUTEROL SULFATE 3 ML AMPUL.NEB IH SCH ×2 (21:05→21:06)
[2022-03-27] MEDS ORDERED: ALPRAZolam 0.25 MG TAB PO ONE (01:34)
[2022-03-27 01:38] LABS: Bilirubin,Urine NEG (Negative); Blood,Urine NEG (Negative); Color,Urine Straw (Yellow); Protein,Urine <15 mg/dL mg/dL (Negative); Urobilinogen,Urine < 2.0 mg/dL (<2.0)
[2022-03-27 01:50] LABS: Amphetamine Screen,Urine PRESUMPTIVE POSITIVE; Benzodiazepines Screen,Urine PRESUMPTIVE NEGATIVE; Cannabinoid Screen,Urine PRESUMPTIVE NEGATIVE; Cocaine Screen,Urine PRESUMPTIVE NEGATIVE; Methadone Screen,Urine PRESUMPTIVE NEGATIVE; Opiate Screen,Urine PRESUMPTIVE NEGATIVE
[2022-03-27] MEDS: IPRATROPIUM/ALBUTEROL SULFATE 3 ML AMPUL.NEB IH SCH ×3 (01:53→12:04)
[2022-03-27 04:25] LABS: Basophils # (Auto) 0.1 K/mm3 (0.0-0.1); Basophils % (Auto) 0.9 % (0.0-1.8); Eosinophils # (Auto) 0.5 K/mm3 (0.0-0.4); Hematocrit 44.6 % (35.5-45.6); Hemoglobin 14.9 gm/dl (11.8-15.2); Lymphocytes # (Auto) 2.4 K/mm3 (1.2-5.4); Lymphocytes % (Auto) 25.6 % (13.4-35.0); Mean Corpuscular HGB Conc 33 % (32-34); Mean Corpuscular Volume 85 fl (84-94); Monocytes # (Auto) 0.7 K/mm3 (0.0-0.8); Platelet Count 242 K/mm3 (140-440); Red Blood Count 5.28 M/mm3 (3.65-5.03); Red Cell Distribution Width 14.6 % (13.2-15.2)
[2022-03-27 04:47] LABS: BUN/Creatinine Ratio 22; Blood Urea Nitrogen 22 mg/dL (9-20); Calcium 8.9 mg/dL (8.4-10.2); Hemolysis Index 7
[2022-03-27] MEDS: cefTRIAXone/NS 2 GM/100 ML 2 GM/100 ML BAG IV SCH (05:04)
[2022-03-27] MEDS ORDERED: POTASSIUM CHLORIDE ER 20 MEQ TAB PO NR (07:59)
[2022-03-27 08:45] VITALS: BP 138/94
[2022-03-27] MEDS ORDERED: POTASSIUM PHOSPHATE 15 MMOL in SODIUM CHLORIDE 0.9% 250ML 250 ML IV NR (09:00)
[2022-03-27] MEDS: FAMOTIDINE 20 MG/2 ML INJ IV SCH (10:54)
[2022-03-27] MEDS: HEPARIN 5,000 UNIT/1 ML VIAL SUB-Q SCH (10:54)
--- NOTE | 2022-03-27 11:20 | Progress Note ---
Subjective - Reason for Consult Consult date: 03/27/22 Reason for consult: Mental health evaluation - Chief Complaint Chief complaint: The patient was seen today. He presents with appropriate affect. No withdrawal symptoms noted. The patient denies any current suicidal/homicidal ideation and denies hallucinations. REVIEW OF SYSTEMS Constitutional: Negative for weight loss ENT: Negative for stridor Respiratory: Negative for cough or hemoptysis All other systems reviewed and are negative MENTAL STATUS EXAMINATION General Appearance and Behavior: Age appropriate, good hygiene, wearing appropriate clothes, good eye contact, cooperative Cooperation: Participating/engaged Psychomotor Behavior: unremarkable and within normal limits Mood:OK Affect and affective range: congruent with mood Thought Process: Goal oriented Thought Content: Reality oriented Speech: Normal volume, Regular rate and rhythm Suicidal Ideation: Denies Homicidal Ideation: Denies Hallucinations: Denies Impulse Control: Unimpaired Insight and Judgment: Limited insight and judgment Memory: Normal Attention: Normal Orientation: Alert, oriented Assessment Substance use disorder Treatment Plan Sitter: Defer to primary Medical: Per primary Disposition:Do not Recommend acute inpatient treatment. De Icer Installer will provide with psychiatric outpatient resources. Will sign off. Case discussed with Dr. Raymond Medications and Allergie Mental Status Exam - Vital signs Last Vital Signs Temp 97.1 F L 03/27/22 08:09 Pulse 113 H 03/27/22 08:09 Resp 16 03/27/22 01:53 BP 138/94 03/27/22 08:09 Pulse Ox 96 03/27/22 08:20
--- NOTE | 2022-03-27 12:57 | Discharge Summary ---
Providers - Providers Date of Admission: 03/26/22 05:00 Date of discharge: 03/27/22 Attending physician: YANI OCASIO MD 03/26/22 05:02 psychiatry consult [Consult to Mental Health] [CONS] Routine Reason For Exam: Drug intoxication Primary care physician: EDY BAÑUELOS Hospitalization Reason for admission: Acute toxic encephalopathy, MALU Condition: Stable Pertinent studies: Reviewed. Procedures: None. Hospital course: 46-year-old patient with past medical history of polysubstance dependence, tobacco dependence, and history of for lithiasis who presented to the emergency department with acute toxic encephalopathy secondary to methamphetamine usage. On presentation, the patient was found to be hemodynamically stable but mildly tachycardic, diaphoretic, and agitated. The patient was found to have an MALU with a creatinine of 2.2 (baseline unknown) is likely secondary to dehydration in the setting of recent amphetamine consumption. Patient also presented with a WBC of 22 that has since resolved. Urinalysis was unremarkable and blood culture has had no growth x36 hours. Patient was counseled at length about the importance of cessation of polysubstances (patient admits to consuming cocaine, marijuana, and synthetic methamphetamines in the past). Patient expressed understanding. Patient is medically clear for discharge. Disposition: 01 HOME / SELF CARE / HOMELESS Final Discharge Diagnosis (Prints w/discharge instructions): Acute toxic encephalopathy, acute drug intoxication, MALU, systemic inflammatory response syndrome, leukocytosis, hypernatremia, polysubstance dependence, tobacco dependence. Time spent for discharge: 45 min Core Measure Documentation - Palliative Care Palliative Care/ Comfort Measures: Not Applicable - Core Measures Any of the following diagnoses?: none Exam - Constitutional Vitals: Temp Pulse Resp BP Pulse Ox 97.1 F L 113 H 16 138/94 97 03/27/22 08:09 03/27/22 08:09 03/27/22 01:53 03/27/22 08:09 03/27/22 10:00 General appearance: Present: no acute distress, well-nourished - EENT Eyes: Present: PERRL, EOM intact ENT: hearing intact, clear oral mucosa, dentition normal - Neck Neck: Present: supple, normal ROM - Respiratory Respiratory effort: normal Respiratory: bilateral: CTA - Cardiovascular Rhythm: regular Heart Sounds: Present: S1 & S2 - Extremities Extremities: no ischemia, pulses intact, pulses symmetrical, No edema, normal temperature, normal color, Full ROM Peripheral Pulses: within normal limits - Abdominal General gastrointestinal: Present: soft, non-tender, non-distended, normal bowel sounds Male genitourinary: Present: deferred - Rectal Rectal Exam: deferred - Integumentary Integumentary: Present: clear, warm, dry - Musculoskeletal Musculoskeletal: strength equal bilaterally - Psychiatric Psychiatric: appropriate mood/affect, intact judgment & insight, memory intact, agitated - Neurologic Neurologic: CNII-XII intact, moves all extremities - Allied Health Allied health notes reviewed: nursing Plan Activity: no restrictions Diet: regular Additional Instructions: 46-year-old patient with past medical history of polysubstance dependence, tobacco dependence, and history of for lithiasis who presented to the emergency department with acute toxic encephalopathy secondary to methamphetamine usage. On presentation, the patient was found to be hemodynamically stable but mildly tachycardic, diaphoretic, and agitated. The patient was found to have an MALU with a creatinine of 2.2 (baseline unknown) is likely secondary to dehydration in the setting of recent amphetamine consumption. Patient also presented with a WBC of 22 that has since resolved. Urinalysis was unremarkable and blood culture has had no growth x36 hours. Patient was counseled at length about the importance of cessation of polysubstances (patient admits to consuming cocaine, marijuana, and synthetic me thamphetamines in the past). Patient expressed understanding. Patient is medically clear for discharge. Care Plan Goals: Patient is medically cleared for discharge. Assessment: 46-year-old patient with past medical history of polysubstance dependence, tobacco dependence, and history of for lithiasis who presented to the emergency department with acute toxic encephalopathy secondary to methamphetamine usage. On presentation, the patient was found to be hemodynamically stable but mildly tachycardic, diaphoretic, and agitated. The patient was found to have an MALU with a creatinine of 2.2 (baseline unknown) is likely secondary to dehydration in the setting of recent amphetamine consumption. Patient also presented with a WBC of 22 that has since resolved. Urinalysis was unremarkable and blood culture has had no growth x36 hours. Patient was counseled at length about the importance of cessation of polysubstances (patient admits to consuming cocaine, marijuana, and synthetic methamphetamines in the past). Patient expressed understanding. Patient is medically clear for discharge. Follow up with: EDY BAÑUELOS MD [Primary Care Provider] - 7 Days
[2022-03-28] MEDS ORDERED: FAMOTIDINE 20 MG TAB PO SCH (10:00)
== END 2022-03-27 13:22 | disposition home or self-care (01) | DRG 682 ==
LOC: ED 01:08 → 4A 05:00
PROVIDERS: ADMIT Hospitalist; ATTEND Student in an Organized Health Care Education/Training Program
DX: N17.9 Acute kidney failure, unspecified (principal); G92.8 Other toxic encephalopathy; R65.10 Systemic inflammatory response syndrome (SIRS) of non-infectious origin without acute organ dysfunction; E87.0 Hyperosmolality and hypernatremia; F17.200 Nicotine dependence, unspecified, uncomplicated; Z71.6 Tobacco abuse counseling
CPT/HCPCS: 36415; 71045; 80048; 80053; 80307; 80320; 81001; 82140; 82550; 83735; 84100; 85007; 85025; 85027; 87040; 87641; 93005; 94640; 99406; G0378; J3490; J7070; G0480; J0696; J1644; J2060; J2405; J7030